=== PATIENT | male | born 1945 | race Caucasian/White ===

== ENCOUNTER 2023-03-01 03:15 | Observation (INO) ==
[2023-03-01 05:57] LABS: ABS Lymphocytes 0.4 10^3/uL (1.0-4.8); ABS Monocytes 0.2 10^3/uL (0.0-1.1); ABS Neutrophils 6.1 10^3/uL (1.5-7.6); ABS Nucleated RBC 0.03 10^3/ul; Hematocrit 45.9 % (38-53); Hemoglobin 15.8 g/dL (13.2-16.3); Lymphocyte % 6.4 %; Mean Corpuscular Hemoglobin 28.4 pg (27-33); Mean Corpuscular Hgb Conc 34.5 g/dL (31-36); Mean Corpuscular Volume 82.3 fL (80-97); Mean Platelet Volume 7.2 fL (7.5-11.2); Nucleated Red Blood Cells % 0.4 %/100WBC (0.0-0.8); Platelet Count 270 10^3/uL (150-450); Red Blood Count 5.58 10^6/uL (4.06-5.63); Red Cell Distribution Width 13.7 % (12-17); White Blood Count 6.8 10^3/uL (3.6-10.2)
[2023-03-01 06:17] LABS: Albumin 4.4 g/dL (3.2-5.2); Albumin/Globulin Ratio 1.5 (1-3); Calcium 9.3 mg/dL (8.6-10.3); Creatinine, Serum 0.94 mg/dL (0.67-1.17); Globulin 2.9 g/dL (2-4); Potassium 3.8 mmol/L (3.5-5.0); Total Bilirubin 0.6 mg/dL (0.2-1.0); Total Protein 7.3 g/dL (6.4-8.9); eGFR CKD-EPI 84.5 (>60)
[2023-03-01 06:40] LABS: Urine Appearance Turbid; Urine Color Red
[2023-03-01 06:41] LABS: Urine Specific Gravity 1.016 (1.002-1.030)
[2023-03-01 06:53] LABS: Urine Bacteria 1+ (Absent); Urine Red Blood Cell 3+(>10/hpf) (Absent); Urine White Blood Cell Trace(0-5/hpf) (Absent)
[2023-03-01] MEDS ORDERED: Iohexol 350 (CONTRAST) 500 ML MDV IV ONE (07:04)
[2023-03-01] MEDS ORDERED: GENTAMICIN ADULT IVPB ONE (09:33)
[2023-03-01] MEDS ORDERED: Ampicillin ADVAN 2 GM in NS 0.9% 100 ml BAG 100 ML IVPB ONE (09:33)
[2023-03-01] MEDS ORDERED: NS 0.9% IVPB ONE (09:33)
[2023-03-01 11:44] LABS: C Reactive Protein 5.63 mg/L (<8.01); Magnesium 1.9 mg/dL (1.9-2.7)
[2023-03-01] MEDS ORDERED: Magnesium Sulfate 2 gm BAG 2 GM/50 ML BAG IVPB ONE (12:04)
[2023-03-01 12:41] LABS: INR 1.03 (0.83-1.13)
[2023-03-01] MEDS ORDERED: fentaNYL 100 mcg/2 ml 50 MCG/ML VIAL ONE (12:46)
[2023-03-01] MEDS ORDERED: Midazolam 2 mg/2 ml VIAL 1 mg/ml 2 ml VIAL (2 mg) ONE ×2 (12:46→13:46)
[2023-03-01] MEDS ORDERED: Propofol 10 MG/ML 20 ML BTL ONE ×2 (13:33→14:23)
[2023-03-01] MEDS ORDERED: Lidocaine 2% PF 5 ML VIAL ONE (13:33)
[2023-03-01] MEDS ORDERED: Ondansetron 4 mg VIAL 2 MG/ML 2 ml VIAL ONE (13:53)
[2023-03-02 05:00] LABS: ABS Eosinophils 0.1 10^3/uL (0.0-0.5); ABS Lymphocytes 1.1 10^3/uL (1.0-4.8); ABS Neutrophils 6.9 10^3/uL (1.5-7.6); ABS Nucleated RBC 0.01 10^3/ul; Eosinophil % 0.8 %; Hematocrit 41.9 % (38-53); Hemoglobin 14.3 g/dL (13.2-16.3); Lymphocyte % 11.6 %; Mean Corpuscular Hemoglobin 28.2 pg (27-33); Mean Corpuscular Volume 82.9 fL (80-97); Mean Platelet Volume 7.4 fL (7.5-11.2); Nucleated Red Blood Cells % 0.1 %/100WBC (0.0-0.8); Platelet Count 249 10^3/uL (150-450); Red Blood Count 5.06 10^6/uL (4.06-5.63); Red Cell Distribution Width 13.9 % (12-17); White Blood Count 9.1 10^3/uL (3.6-10.2)
[2023-03-02 05:22] LABS: Creatinine, Serum 0.96 mg/dL (0.67-1.17); Magnesium 1.9 mg/dL (1.9-2.7); Potassium 3.9 mmol/L (3.5-5.0); eGFR CKD-EPI 82.4 (>60)
[2023-03-02 05:46] LABS: Calcium 8.5 mg/dL (8.6-10.3)
[2023-03-03 10:20] VITALS: BP 130/73
== END 2023-03-03 13:45 | disposition home or self-care (01) ==
LOC: EDHOLD 03:15 → ED 03:15 → AA 12:00 → SSU 16:07
PROVIDERS: ADMIT Hospitalist; ATTEND Hospitalist